=== PATIENT | female | born 1990 | race Caucasian/White ===

== ENCOUNTER 2021-03-31 18:25 | Emergency (ER) | payer OTHER ==
[~2021-03-31 18:25] MED LIST: BACTRIM DS TAB1 EACH PO; COLACE 100MG C100 MG PO; IBUPROFEN600 MG PO; IBUPROFEN800 MG PO; KEFLEX CAP 500500 MG PO; SUBUTEX 8 MG TAB8 MG PO; SUBUTEX 8 MG TAB8 MG SL; ZANTAC150 MG PO
[2021-03-31 19:09] LABS: HEMOGLOBIN 9.4 gm/dl (12.3-15.3); RED BLOOD COUNT 3.99 M/UL (4.00-5.10); WHITE BLOOD COUNT 7.1 K/UL (4.5-11.0)
[2021-03-31 19:31] LABS: BUN/CREATININE RATIO 29 (0-10)
[2021-03-31] MEDS ORDERED: PROVERA10 MG PO (20:45)
== END 2021-03-31 20:58 | disposition home or self-care (01) ==
LOC: ER1 18:25
PROVIDERS: Physician Assistant Medical
DX: N92.0 Excessive and frequent menstruation with regular cycle (principal); F17.210 Nicotine dependence, cigarettes, uncomplicated
CPT/HCPCS: 80053; 81001; 84703; 85025; 85610; 99284

== ENCOUNTER 2022-01-29 13:21 | Emergency (ER) | payer OTHER ==
[~2022-01-29 13:21] MED LIST changes: +PROVERA10 MG PO
== END 2022-01-29 14:35 | disposition home or self-care (01) ==
LOC: ER1 13:21
DX: Z04.1 Encounter for examination and observation following transport accident (principal); F17.200 Nicotine dependence, unspecified, uncomplicated
CPT/HCPCS: 99282

== ENCOUNTER 2022-02-02 17:20 | Emergency (ER) | payer OTHER | END 2022-02-03 03:02 | disposition left against medical advice (07) | LOC: ER1 17:20 | DX: Z53.21 Procedure and treatment not carried out due to patient leaving prior to being seen by health care provider (principal) ==

== ENCOUNTER 2022-03-15 14:53 | Emergency (ER) | payer OTHER | END 2022-03-15 15:00 | disposition left against medical advice (07) | LOC: ER1 14:53 | DX: Z53.21 Procedure and treatment not carried out due to patient leaving prior to being seen by health care provider (principal) ==